=== PATIENT | male | born 1990 | race Caucasian/White ===

== ENCOUNTER 2024-08-08 22:58 | Emergency (ER) | payer OTHER ==
[~2024-08-08] VITALS: Ht 182.9 cm; Wt 81.8 kg
[2024-08-08 23:01] VITALS: BP 135/92; PULSE 90; RESP 16; TEMP 98.3; O2SAT 97
== END 2024-08-08 23:15 ==
LOC: ER 22:59
DX: F10.129 Alcohol abuse with intoxication, unspecified (principal); Z02.89 Encounter for other administrative examinations; Y90.9 Presence of alcohol in blood, level not specified
CPT/HCPCS: 99283